=== PATIENT | female | born 1965 | race Caucasian/White ===

== ENCOUNTER 2021-11-01 21:45 | Inpatient (IN) | payer SELFPAY ==
[~2021-11-01] VITALS: Ht 167.6 cm; Wt 103.5 kg
[~2021-11-01 21:45] MED LIST: DAYPRO600 M1 PO; SKELAXIN800 MG PO
[2021-11-01 22:06] VITALS: BP 136/105
[2021-11-01 22:48] LABS: BASO # 0.1 10*3/uL (0.0-0.1); BASO % 0.4 % (0.0-1.0); EOS # 0.1 10*3/uL (0.0-0.4); EOS % 0.6 % (1.0-4.0); HEMATOCRIT 45.7 % (37.0-47.0); LYMPH # 1.7 10*3/uL (1.3-4.4); LYMPH % 12.5 % (27.0-41.0); MEAN CELL VOLUME 84.9 fl (81.0-99.0); MEAN CORPUSCULAR HGB 28.8 pg (27.0-31.0); MEAN CORPUSCULAR HGB CONC 33.9 g/dl (33.0-37.0); MEAN PLATELET VOLUME 10.6 fl (9.6-12.3); MONO # 0.9 10*3/uL (0.1-1.0); MONO % 6.7 % (3.0-9.0); NEUT % 79.3 % (47.0-73.0); PLATELET COUNT AUTOMATED 214 10*3/uL (130-400); RED BLOOD COUNT 5.38 10*6/uL (4.10-5.10); WHITE BLOOD COUNT 13.9 10*3/uL (4.8-10.8)
[2021-11-01 22:57] LABS: INTERNATIONAL NORM RATIO 1.1 (2.0-3.5)
[2021-11-01 23:04] LABS: ALKALINE PHOSPHATASE 157 U/L (45-117); BUN 14 mg/dl (7-24); CHLORIDE 101 mmol/L (98-107); CREATININE 0.77 mg/dL (0.55-1.02); LIPASE 60 U/L (73-393); POTASSIUM 3.7 mmol/L (3.5-5.1); SGOT/AST 13 IU/L (3-35); SGPT/ALT 20 U/L (12-78); SODIUM 135 mmol/L (136-145); TOTAL PROTEIN 7.8 gm/dL (6.4-8.2)
[2021-11-02 00:50] LABS: BILIRUBIN Negative (Negative); BLOOD Negative (Negative); CLARITY Cloudy (Clear); COLOR Yellow (Yellow); GLUCOSE 3+ (Negative); KETONE 3+ (Negative); LEUKO ESTERASE Negative (Negative); NITRITE Negative (Negative); PH 5.5 (4.5-8.0); SPECIFIC GRAVITY >= 1.030 (1.001-1.030)
[2021-11-02 01:07] LABS: EPITHELIAL CELLS 41-50
[2021-11-02 01:08] LABS: BACTERIA 2+; YEAST 1+
[2021-11-02 01:24] VITALS: BP 132/69
[2021-11-02 04:01] VITALS: BP 123/67
[2021-11-02 05:50] VITALS: BP 134/71
[2021-11-02 13:30] VITALS: BP 127/48
[2021-11-02 16:00] VITALS: BP 127/66
[2021-11-02 20:00] VITALS: BP 153/61
[2021-11-03] VITALS: BP 151/92
[2021-11-03 06:03] LABS: BUN 11 mg/dl (7-24); CHLORIDE 103 mmol/L (98-107); CREATININE 0.63 mg/dL (0.55-1.02); POTASSIUM 3.6 mmol/L (3.5-5.1); SGOT/AST 12 IU/L (3-35); SGPT/ALT 15 U/L (12-78); SODIUM 138 mmol/L (136-145)
[2021-11-03 06:07] LABS: ALKALINE PHOSPHATASE 133 U/L (45-117); FREE T4 1.71 ng/dl (0.76-1.46); THYROID STIM HORMONE (HS) 0.384 uIU/ml (0.358-4.75); TOTAL PROTEIN 7.2 gm/dL (6.4-8.2)
[2021-11-03 06:17] LABS: BASO # 0.1 10*3/uL (0.0-0.1); BASO % 0.6 % (0.0-1.0); EOS # 0.1 10*3/uL (0.0-0.4); EOS % 0.4 % (1.0-4.0); HEMATOCRIT 43.5 % (37.0-47.0); LYMPH # 2.2 10*3/uL (1.3-4.4); LYMPH % 15.7 % (27.0-41.0); MEAN CELL VOLUME 87.5 fl (81.0-99.0); MEAN CORPUSCULAR HGB 29.4 pg (27.0-31.0); MEAN CORPUSCULAR HGB CONC 33.6 g/dl (33.0-37.0); MEAN PLATELET VOLUME 11.1 fl (9.6-12.3); MONO # 1.1 10*3/uL (0.1-1.0); MONO % 7.7 % (3.0-9.0); NEUT # 10.5 10*3/uL (2.3-7.9); NEUT % 75.2 % (47.0-73.0); PLATELET COUNT AUTOMATED 189 10*3/uL (130-400); RED BLOOD COUNT 4.97 10*6/uL (4.10-5.10); RED CELL DISTRI WIDTH 13.2 % (0-14.5)
[2021-11-03 08:00] VITALS: BP 143/55
[2021-11-03 12:00] VITALS: BP 127/59
[2021-11-03] MEDS ORDERED: PROCTOFOAM-HC 110 G1 T (12:40)
[2021-11-03] MEDS ORDERED: GLUCOPHAGE500 MG PO (12:40)
== END 2021-11-03 14:33 | disposition home or self-care (01) | DRG 394 ==
LOC: ED 21:45 → 5E 11-02 11:40 → EDHOLD 11-02 11:40 → 5E 11-02 13:16
PROVIDERS: Internal Medicine; Physician Assistant; ADMIT Internal Medicine; ATTEND Internal Medicine
DX: K64.9 Unspecified hemorrhoids (principal); R65.10 Systemic inflammatory response syndrome (SIRS) of non-infectious origin without acute organ dysfunction; Z51.5 Encounter for palliative care; Z66 Do not resuscitate; K59.00 Constipation, unspecified; R73.9 Hyperglycemia, unspecified; Z88.1 Allergy status to other antibiotic agents; Z82.49 Family history of ischemic heart disease and other diseases of the circulatory system; Z83.3 Family history of diabetes mellitus